=== PATIENT | male | born 1960 | race Caucasian/White ===

== ENCOUNTER 2024-05-24 11:33 | Emergency (ER) | payer OTHER ==
[~2024-05-24] VITALS: Ht 177.8 cm; Wt 136.1 kg
[~2024-05-24 11:33] MED LIST: ASPIRIN325 MG PO; AUGMENTIN 875 M1 TA1 PO; CIPRODEX 0.3%-7.5 ML OT; DEPAKOTE ER500 MG PO; LOPRESSOR100 MG PO; PLAVIX75 MG PO; RANEXA1000 MG PO; SIMVASTATIN20 MG PO; TRILIPIX45 M1 PO; ULTRAM50 MG PO; VICODIN 5/500 505 MG PO
[2024-05-24 12:12] LABS: BASO # 0.1 10*3/uL (0.0-0.1); EOS # 0.1 10*3/uL (0.0-0.4); HEMATOCRIT 40.5 % (42.0-52.0); MEAN CORPUSCULAR HGB 26.1 pg (27.0-31.0); MEAN CORPUSCULAR HGB CONC 31.9 g/dl (33.0-37.0); MEAN PLATELET VOLUME 9.1 fl (9.6-12.3); MONO # 0.6 10*3/uL (0.1-1.0); MONO % 7.2 % (3.0-9.0); NEUT # 6.2 10*3/uL (2.3-7.9); PLATELET COUNT AUTOMATED 303 10*3/uL (130-400); RED BLOOD COUNT 4.94 10*6/uL (4.50-5.90); WHITE BLOOD COUNT 7.8 10*3/uL (4.8-10.8)
[2024-05-24 12:23] LABS: ACT PARTIAL THROMBO TIME 28.4 SECONDS (20.0-32.1)
[2024-05-24 12:38] LABS: ALKALINE PHOSPHATASE 251 U/L (46-116); BUN 22 mg/dl (9-23); CHLORIDE 93 mmol/L (98-107); POTASSIUM 3.9 mmol/L (3.4-5.1); SGPT/ALT 41 U/L (5-49)
[2024-05-24] MEDS ORDERED: SODIUM CHLORIDE 0.9% 1,000 ML IV ONE (12:50)
[2024-05-24 13:00] LABS: BILIRUBIN Negative (Negative); BLOOD 2+ (Negative); CLARITY Clear (Clear); COLOR Yellow (Yellow); GLUCOSE 2+ (Negative); KETONE Negative (Negative); LEUKO ESTERASE Trace (Negative); NITRITE Negative (Negative); SPECIFIC GRAVITY 1.015 (1.001-1.030); UROBILINOGEN 0.2 E.U./dl (0.0-1.0)
[2024-05-24 13:08] LABS: URINE AMPHETAMINES Negative (1000ng/ml); URINE BARBITURATES Negative (200ng/ml); URINE BENZODIAZEPINES Negative (200ng/ml); URINE CANNABINOIDS (THC) Negative (50ng/ml); URINE COCAINE Negative (300ng/ml); URINE METHADONE Negative (300ng/ml); URINE OPIATES Negative (300ng/ml); URINE PHENCYCLIDINE Negative (25ng/ml)
[2024-05-24 13:10] LABS: BACTERIA 2+; HYALINE CAST 31-40
== END 2024-05-24 15:18 | disposition left against medical advice (07) ==
LOC: ED 11:33
PROVIDERS: Internal Medicine
DX: R55 Syncope and collapse (principal); Z53.29 Procedure and treatment not carried out because of patient's decision for other reasons; R42 Dizziness and giddiness; R53.1 Weakness; I10 Essential (primary) hypertension; I25.10 Atherosclerotic heart disease of native coronary artery without angina pectoris; E78.5 Hyperlipidemia, unspecified; E11.9 Type 2 diabetes mellitus without complications; I25.2 Old myocardial infarction; E78.00 Pure hypercholesterolemia, unspecified; F31.9 Bipolar disorder, unspecified; Z79.899 Other long term (current) drug therapy